=== PATIENT | male | born 1950 | race Caucasian/White ===

== ENCOUNTER → 2023-07-28 09:37 | Outpatient (REF) | payer MEDICARE, OTHER, SELFPAY ==
[2023-07-28 13:28] LABS: PSA, Total - Diagnostic 7.52 ng/ml (0.0-4.0)
== END ==
LOC: HWLAB 09:37
PROVIDERS: ATTENDING PHYSICIAN Radiology Radiation Oncology; FAMILY PHYSICIAN Internal Medicine
DX: R97.20 Elevated prostate specific antigen [PSA] (principal)
CPT/HCPCS: 36415; 84153; 84403

== ENCOUNTER → 2024-01-03 07:01 | Outpatient (REF) | payer MEDICARE, OTHER, SELFPAY ==
[2024-01-03 10:22] LABS: PSA, Total - Diagnostic 1.52 ng/ml (0.0-4.0)
== END ==
LOC: HWLAB 07:01
PROVIDERS: ATTENDING PHYSICIAN Radiology Radiation Oncology; FAMILY PHYSICIAN Internal Medicine
DX: C61 Malignant neoplasm of prostate (principal)
CPT/HCPCS: 36415; 84153; 84403

== ENCOUNTER → 2024-04-17 08:16 | Outpatient (REF) | payer MEDICARE, OTHER, SELFPAY ==
[2024-04-17 10:45] LABS: Blood Urea Nitrogen 16 mg/dl (9-20); Calcium 8.9 mg/dl (8.4-10.2); Carbon Dioxide 24 mmol/L (22-30); Chloride 100 mmol/L (98-107); Glucose 95 mg/dl (70-99); HDL Cholesterol 50 mg/dl; LDL Cholesterol, Calculated 146 mg/dl; Sodium 137 mmol/L (135-145); Total Cholesterol 218 mg/dl (50-199); Triglyceride 112 mg/dl (10-149); Very Low Density Lipoprotein 22 mg/dl (0-30); eGFR > 60.00
[2024-04-17 11:27] LABS: Folate > 20.0 ng/ml (2.76-20)
[2024-04-17 12:27] LABS: Vitamin B12 490 pg/ml (239-931)
== END ==
LOC: HWLAB 08:16
PROVIDERS: ATTENDING PHYSICIAN Internal Medicine
DX: R20.0 Anesthesia of skin (principal); R20.2 Paresthesia of skin; I10 Essential (primary) hypertension; C61 Malignant neoplasm of prostate; E78.5 Hyperlipidemia, unspecified
CPT/HCPCS: 36415; 80048; 80061; 82607; 82746; 84443

== ENCOUNTER → 2024-06-25 13:14 | Outpatient (REF) | payer MEDICARE, OTHER, SELFPAY ==
[2024-06-25 16:21] LABS: PSA, Total - Diagnostic 0.96 ng/ml (0.0-4.0)
== END ==
LOC: HWLAB 13:14
PROVIDERS: ATTENDING PHYSICIAN Radiology Radiation Oncology; FAMILY PHYSICIAN Internal Medicine
DX: C61 Malignant neoplasm of prostate (principal)
CPT/HCPCS: 36415; 84153

== ENCOUNTER 2024-12-06 17:10 | Emergency (ER) | payer MEDICARE, OTHER, SELFPAY ==
[2024-12-06] VITALS (11 sets, daily range): BP systolic 162–217; BP diastolic 92–124
--- NOTE | 2024-12-06 17:47 | EDRN ---
Shahnaz YARBROUGH in room w /pt at this time.
[2024-12-06 18:03] LABS: Hematocrit 35.4 % (39.0-52.0); Hemoglobin 11.5 g/dL (13.0-18.0); Mean Corp Hgb Conc. 32.5 g/dL (33.0-37.0); Mean Corpuscular Volume 66.3 fL (80.0-94.0); Nucleated Red Blood Cells % 0 % (-); Platelet Count 276 10^3/uL (130-400); Red Cell Dist. Width 15.9 % (11.5-14.5)
[2024-12-06 18:11] LABS: INR 0.95; PT 13.2 Sec (11.4-14.6)
--- NOTE | 2024-12-06 18:15 | ED.CVA ---
History of Present Illness
General
Chief Complaint: CVA/TIA Symptoms
Source: patient
Exam Limitations: none
Time Seen by Provider: 12/06/24 17:46
Onset of Stroke Symptoms
Onset of symptoms known: No
Time pt last seen normal is known: No
History of Present Illness
History of Present Illness:
74-year-old male with history of hypertension on 12 and half milligrams of hydrochlorothiazide otherwise healthy presents with the onset of dizziness this morning when he woke up which was transient and quickly resolved but then progressed into
tingling and some numbness sensation into the fingers and toes of his left hand. At around 3 PM this afternoon, he had blurry vision out of the periphery of his left eye that also resolved within 20 minutes. Currently he has no symptoms. He is
not on any blood thinners. He denies a headache chest pain or shortness of breath. Took his blood pressure at home and noticed it was elevated which prompted his visit here today.
Phy Exam
Physical Exam
Physical Exam:
General: Well-appearing male no acute respiratory distress
HEENT: Normocephalic atraumatic
Heart: Regular rate and rhythm
Lungs: Clear no wheeze
Neurologic exam: Normal gait finger-nose intact [id number] intact no drift on exam good sensation all extremities no dysarthria or aphasia. Alert and oriented x 3 no facial asymmetry
Extremities: No cyanosis or edema
Course
Orders/Labs/Results
Orders:
Orders
12/06/24 17:45
Electrocardiogram (*1) Urgent
Reason for Study: Chest Pain
Cardiac Monitoring- Treatment ONCE
EKG- Treatment ONCE
IV Insert/Care/Rem.- Treatment PRN
12/06/24 17:57
Complete Blood Count/With Diff Urgent
Comprehensive Metabolic Panel Urgent
Prothrombin Time Urgent
Troponin I Urgent
12/06/24 18:08
CT Head & Neck Angio W/wo IV Urgent
Comment:
Reason For Exam: blurry vision, left sided weakness
12/06/24 22:04
Aspirin Chewable [Low Strength Aspirin] 81 mg PO NOW STA
Abnormal Lab Results
12/06/24
17:57
WBC 3.4 L 10^3/uL
(4.8-10.8)
Hgb 11.5 L g/dL
(13.0-18.0)
Hct 35.4 L %
(39.0-52.0)
MCV 66.3 L fL
(80.0-94.0)
MCH 21.5 L pg
(27.0-31.0)
MCHC 32.5 L g/dL
(33.0-37.0)
RDW 15.9 H %
(11.5-14.5)
Absolute Lymphs (auto) 0.5 L 10^3/uL
(1.2-3.4)
Lymphocytes % 15.1 L %
(20.5-51.1)
Monocytes % 10.4 H %
(1.7-9.3)
Glucose 101 H mg/dl
(70-99)
Total Bilirubin 1.5 H mg/dl
(0.2-1.3)
12/06/24 17:57
12/06/24 17:57
Vital Signs
Initial and Last Documented VS:
Initial Vital Signs
Temp Pulse Resp BP Pulse Ox
98.6 F 77 16 215/124 98
12/06/24 17:11 12/06/24 17:11 12/06/24 17:11 12/06/24 17:11 12/06/24 17:11
Last Documented Vital Signs
Temp Pulse Resp BP Pulse Ox
98.6 F 64 14 184/96 98
12/06/24 17:11 12/06/24 21:00 12/06/24 21:00 12/06/24 21:00 12/06/24 21:00
MDM/Problems Addressed
Differential Diagnosis Includes:
Left-sided paresthesias with blurry vision out of the left eye all symptoms have resolved. Patient is hypertensive at triage will continue to monitor. Differential could include hypertensive urgency versus TIA/CVA versus neuropathy versus atypical
migraine
Will check labs. EKG was ordered which shows sinus rhythm with a rate of [address] pending CTA head and neck pending
*Pulse Oximetry
SaO2: 99
Oxygen Mode of Delivery: Room air
Patient hypoxic: no
*Critical Care Note
Total Time (30-74mins, 75-104mins- exclusive of procedures): Not Applicable
Update Note
Update Note:
Blood pressure has improved now 160s over 90s. Symptoms still resolved. CT head negative. Did order CT angio of head and neck which shows less than 30% stenosis of the left carotid. It also shows areas of mild to moderate stenosis within the
right petrous and paraclinoid ICA secondary to predominantly noncalcified atherosclerotic plaque
Symptoms still resolved upon reassessment still with normal neurologic exam upon reassessment. Given patient's initial blood pressure and presenting symptoms concern for possible TIA versus stroke. Offered admission to hospital for further workup
however patient declined. Patient made aware that the full stroke workup was not complete and will not be completed emergency room without admission for further imaging and evaluation and consideration for medical optimization. Will start on an
aspirin and have him follow-up. Return precautions were given.
ED Attending Note
-
Portions of this chart may have been created with voice recognition software.� Occasional wrong word or��sound alike� substitutions may have occurred due to the inherent limitations of voice recognition software.
Discharge Plan
Departure
Patient Disposition: Home (Routine Discharge)
Date of Disposition: 12/06/24
Time of Disposition: 22:07
Patient with high blood pressure during this ER visit?: No
Discharge Problem:
Numbness
Instructions: Stroke (DC)
Referrals:
Delvin Barreto MD [Active, Neurology]
Juanita Novoa MD [Family Provider, Internal Medicine]
Activity Restrictions/Additional Instructions:
Start baby aspirin daily. Please return here for any worsening or recurrent symptoms. Follow-up with your family doctor as planned and see neurology as outpatient as well
Interventions
Interventions:
*Risk Screen - Suicide Last Done: 12/06/24 17:11
*General Assessment Last Done: 12/06/24 17:11
*ED- Fall Risk Assessment Last Done: 12/06/24 17:11
ED- Pulmonary Assessment Last Done: 12/06/24 18:03
ED- Neurological Assessment Last Done: 12/06/24 17:57
ED- Cardiac Assessment Last Done: 12/06/24 18:03
ED Swallowing Screen Last Done: 12/06/24 18:03
Discharge Date and Time
Print Language: POLISH
[2024-12-06 18:23] LABS: ALT (SGPT) 19 U/L (0-50); AST (SGOT) 22 U/L (17-59); Albumin 4.5 g/dl (3.5-5.0); Alkaline Phosphatase 61 U/L (38-126); Blood Urea Nitrogen 15 mg/dl (9-20); Calcium 9.0 mg/dl (8.4-10.2); Carbon Dioxide 30 mmol/L (22-30); Chloride 101 mmol/L (98-107); Glucose 101 mg/dl (70-99); Potassium 3.6 mmol/L (3.5-5.1); Sodium 136 mmol/L (135-145); Total Protein 7.1 g/dl (6.3-8.2); eGFR > 60.00
[2024-12-06 18:35] LABS: Troponin I < 0.012 ng/ml
--- NOTE | 2024-12-06 18:45 | EDRN ---
Pt states that pt awoke w/ vertigo around 7:00 am w/ vertigo that lasted a few minutes. Around 8:30-9:00 pt developed tingling in L fingers and toes that lasted (still has this now but gets neuropathy at times as well), then daniel 15:10 developed
blurred vision in L eye lateral peripheral vision until 15:20 (pt states he had his central vision as he was reading and could read centrally w/ L eye- also states this was a predrome migraine symptoms for migraines he had in the past.). Pt took his
BP after this and it was very high so pt decided to come to be seen in ER. Pt then prior to arrival developed lightheadedness especially when leaning his head foreward and down.
[2024-12-06] MEDS: LOW STRENGTH ASPIRIN 81 MG PO (22:12)
== END 2024-12-06 22:23 | disposition home or self-care (01) ==
LOC: EMR 17:10
PROVIDERS: EMERGENCY PHYSICIAN Student in an Organized Health Care Education/Training Program; FAMILY PHYSICIAN Internal Medicine
DX: R42 Dizziness and giddiness (principal); R20.0 Anesthesia of skin; H53.8 Other visual disturbances; R20.2 Paresthesia of skin; I65.23 Occlusion and stenosis of bilateral carotid arteries; I10 Essential (primary) hypertension; Z79.899 Other long term (current) drug therapy
CPT/HCPCS: 99285; 70496; 70498; 80053; 84484; 85025; 85610; 93005; Q9967

== ENCOUNTER → 2024-12-27 11:03 | Outpatient (REF) | payer MEDICARE, OTHER, SELFPAY | LOC: HWRCS 11:03 | PROVIDERS: ATTENDING PHYSICIAN Internal Medicine | DX: I51.7 Cardiomegaly (principal) | CPT/HCPCS: 93306 ==

== ENCOUNTER → 2025-02-14 07:49 | Outpatient (REF) | payer MEDICARE, OTHER, SELFPAY ==
[2025-02-14 08:57] LABS: Hematocrit 38.4 % (39.0-52.0); Hemoglobin 12.4 g/dL (13.0-18.0); Mean Corp Hgb Conc. 32.3 g/dL (33.0-37.0); Mean Corpuscular Volume 67.6 fL (80.0-94.0); Nucleated Red Blood Cells % 0 % (-); Platelet Count 308 10^3/uL (130-400); Red Cell Dist. Width 16.3 % (11.5-14.5)
[2025-02-14 09:56] LABS: ALT (SGPT) 24 U/L (0-50); AST (SGOT) 24 U/L (17-59); Albumin 4.3 g/dl (3.5-5.0); Alkaline Phosphatase 68 U/L (38-126); Blood Urea Nitrogen 17 mg/dl (9-20); Calcium 9.0 mg/dl (8.4-10.2); Carbon Dioxide 30 mmol/L (22-30); Chloride 103 mmol/L (98-107); Glucose 92 mg/dl (70-99); HDL Cholesterol 51 mg/dl; LDL Cholesterol, Calculated 133 mg/dl; Potassium 4.2 mmol/L (3.5-5.1); Sodium 138 mmol/L (135-145); Total Protein 7.2 g/dl (6.3-8.2); Very Low Density Lipoprotein 18 mg/dl (0-30); eGFR > 60.00
[2025-02-14 10:17] LABS: PSA, Total - Diagnostic 0.56 ng/ml (0.0-4.0)
[2025-02-14 10:49] LABS: Glycohemoglobin (HgbA1c) 5.4 % (4.0-5.6)
== END ==
LOC: HWLAB 07:49
PROVIDERS: ATTENDING PHYSICIAN Radiology Radiation Oncology; FAMILY PHYSICIAN Internal Medicine
DX: E78.5 Hyperlipidemia, unspecified (principal); R73.01 Impaired fasting glucose; C61 Malignant neoplasm of prostate; D56.1 Beta thalassemia
CPT/HCPCS: 36415; 80053; 80061; 83036; 84153; 85025

== ENCOUNTER → 2025-04-22 09:46 | Outpatient (REF) | payer MEDICARE, OTHER, SELFPAY | LOC: HWRAD 09:46 | PROVIDERS: ATTENDING PHYSICIAN Student in an Organized Health Care Education/Training Program; FAMILY PHYSICIAN Internal Medicine | DX: E78.2 Mixed hyperlipidemia (principal) | CPT/HCPCS: 75571 ==